=== PATIENT | male | born 1985 | race Caucasian/White ===

== ENCOUNTER 2016-07-27 05:41 | Day surgery (SDC) | payer MEDICAID ==
[~2016-07-27] VITALS: Ht 185.4 cm; Wt 107.5 kg
[2016-07-27] MEDS ORDERED: VYVANSE (06:12)
[2016-07-27] MEDS ORDERED: SERTRALINE (06:12)
[2016-07-27] MEDS ORDERED: KETOROLAC 30 MG/ML VIAL IVP STA (06:24)
[2016-07-27] MEDS ORDERED: NS IV 1000 ML 1,000 ML IV ONE (06:24)
[2016-07-27 06:32] LABS: BILIRUBIN,URINE NEGATIVE (NEGATIVE); KETONES,URINE NEGATIVE (NEGATIVE); LEUKOCYTE ESTERASE ,URINE NEGATIVE (NEGATIVE); NITRITE,URINE NEGATIVE (NEGATIVE); PH,URINE 7 (5-9); PROTEIN,URINE NEGATIVE (NEGATIVE); UROBILINOGEN,URINE NORMAL (NORMAL)
--- NOTE | 2016-07-27 06:34 | ED General ---
General Chief Complaint: General Problems/Pain Stated Complaint: FEVER 100.,ABD PAIN,BLOATED,POSS SORE THROAT,RT EA Nursing Triage Note: PT TO ED 5 W/ FRIEND FOR MULTIPLE COMPLAINTS. PT STATES HE HAS ABD PAIN FOR "AWHILE" OR 2-3 DAYS, FEVER, WEAKNESS, WATER IN HIS EARS, CONSTIPATION, BLOATING, EYES HURT, UV LIGHT SENSITIVE, COLOR SENSITIVE, FACE FEELS WEIRD BUT DENIES N/V. PT DOES REPORT HE DID HAVE BM X3 THIS AM. PT DID ROLL HIS EYES WHEN THIS RN ASKED HIM WHAT BROUGHT HIM TO THE ED. PT STATED "DIDN'T SHE TELL YOU?" REFERRING TO DATA ARCHITECT. Nursing Sepsis Screen: No Definite Risk Source of Information: Patient Exam Limitations: No Limitations History of Present Illness Time Seen by Provider: 06:15 Initial Comments Here with a variety of vague complaints that seems to center around abdominal discomfort today. States that this is been going on for a couple of days. Complaints of pain throughout the entire abdomen but states it started or centrally in the region of the umbilicus. Does admit to 3 bowel movements today. No blood in his stool or urine. States that it hurts to urinate but it does not burn. He states pain with urination is mostly in the abdomen. Denies nausea or vomiting. Does report fever today. Also complains of right ear pain that has been going on for a while which she then refers to a couple of weeks. States that the little better but still hurts. Also complains of facial tension. Timing/Duration: 2-3 Days, Changing Over Time, Getting Worse Severity: Moderate Associated Systoms: No Chest Pain, No Cough, Fever/Chills, No Nausea/Vomiting, No Rash, No Shortness of Air, No Weakness Allergies and Home Medications Allergies Coded Allergies: buspirone (Verified Allergy, Unknown, 07/27/16) efavirenz (Verified Allergy, Unknown, 07/27/16) paliperidone (Verified Allergy, Unknown, 07/27/16) Home Medications [Sertraline] , (Reported) [Vyvanse] , (Reported) Constitutional: see HPI, No chills, fever, No weakness EENTM: eye pain, No nose congestion, No throat pain Respiratory: No cough, No short of breath, No wheezing Cardiovascular: No chest pain, No edema Gastrointestinal: see HPI, abdominal pain (diffuse), No diarrhea, No hematemesis, No melena, No nausea, No vomiting Genitourinary: see HPI, No dysuria, No hematuria, pain Musculoskeletal: no symptoms reported Skin: no symptoms reported Psychiatric/Neurological: See HPI All Other Systems Reviewed Negative Unless Noted: Yes Past Dunzjlc-Jkwmvl-Pzmtqc Hx Patient Social History Alcohol Use: Denies Use Recreational Drug Use: No Smoking Status: Current Everyday Smoker Type Used: Cigarettes 2nd Hand Smoke Exposure: Yes Recent Foreign Travel: No Contact w/Someone Who Travel: No Recent Infectious Disease Expo: No Recent Hopitalizations: No Surgeries HX Surgeries: Yes Surgeries: Adenoidectomy, Tonsillectomy Respiratory Hx Respiratory Disorders: No Cardiovascular Hx Cardiac Disorders: No Neurological Hx Neurological Disorders: No Genitourinary Hx Genitourinary Disorders: No Gastrointestinal Hx Gastrointestinal Disorders: No Musculoskeletal Hx Musculoskeletal Disorders: No Endocrine Hx Endocrine Disorders: No HEENT HX ENT Disorders: No Cancer Hx Cancer: No Psychosocial Hx Psychiatric Problems: Yes Behavioral Health Disorders: ADD/ADHD, Anxiety, Personality Disorder, Depression Reviewed Nursing Assessment Reviewed/Agree w Nursing PMH: Yes Family Medical History Significant Family History: No Pertinent Family Hx Physical Exam Vital Signs Vital Sign - Last 12Hours 07/27/16 05:53 Temp 101.5 Pulse 106 Resp 20 B/P (MAP) 144/98 Pulse Ox 98 O2 Delivery Room Air Capillary Refill : Less Than 3 Seconds General Appearance: No Apparent Distress, WD/WN HEENT: PERRL/EOMI, TMs Normal, Pharynx Normal, Other (right auditory canal reddened consistent with mild otitis externa.) Neck: Full Range of Motion, Normal Inspection, Non Tender, Supple Respiratory: Chest Non Tender, Lungs Clear, Normal Breath Sounds Cardiovascular: Regular Rate, Rhythm, No Murmur Gastrointestinal: Normal Bowel Sounds, Soft, No Distended, No Guarding, No Mass , No Rebound, Tenderness (diffusely mild) Back: Normal Inspection, No CVA Tenderness, No Vertebral Tenderness Extremity: Non Tender, No Calf Tenderness Neurologic/Psychiatric: Alert, Oriented x3, No Motor/Sensory Deficits, Normal Mood/Affect Skin: Normal Color, Warm/Dry Focused Exam Lactic Acid Level Laboratory Tests Test 07/27/16 06:28 Lactic Acid Level 0.97 MMOL/L (0.50-2.00) Progress/Results/Core Measures Results/Orders Lab Results Laboratory Tests Test 07/27/16 06:26 07/27/16 06:28 Range/Units Urine Color YELLOW Urine Clarity CLEAR Urine pH 7 5-9 Urine Specific [place] 1.010 L 1.016-1.022 Urine Protein NEGATIVE NEGATIVE Urine Glucose (UA) NEGATIVE NEGATIVE Urine Ketones NEGATIVE NEGATIVE Urine Nitrite NEGATIVE NEGATIVE Urine Bilirubin NEGATIVE NEGATIVE Urine Urobilinogen NORMAL NORMAL MG/DL Urine Leukocyte Esterase NEGATIVE NEGATIVE Urine RBC (Auto) NEGATIVE NEGATIVE Urine RBC NONE /HPF Urine WBC NONE /HPF Urine Squamous Epithelial Cells RARE /HPF Urine Crystals NONE /LPF Urine Bacteria NEGATIVE /HPF Urine Casts NONE /LPF Urine Mucus NEGATIVE /LPF Urine Culture Indicated NO White Blood Count 18.2 H 4.3-11.0 10^3/uL Red Blood Count 5.36 4.35-5.85 10^6/uL Hemoglobin 14.8 13.3-17.7 G/DL Hematocrit 45 40-54 % Mean Corpuscular Volume 83 80-99 FL Mean Corpuscular Hemoglobin 28 25-34 PG Mean Corpuscular Hemoglobin Concent 33 32-36 G/DL Red Cell Distribution Width 12.0 10.0-14.5 % Platelet Count 176 130-400 10^3/uL Mean Platelet Volume 11.6 H 7.4-10.4 FL Neutrophils (%) (Auto) 76 H 42-75 % Lymphocytes (%) (Auto) 12 12-44 % Monocytes (%) (Auto) 12 0-12 % Eosinophils (%) (Auto) 1 0-10 % Basophils (%) (Auto) 0 0-10 % Neutrophils # (Auto) 13.8 H 1.8-7.8 X 10^3 Lymphocytes # (Auto) 2.1 1.0-4.0 X 10^3 Monocytes # (Auto) 2.1 H 0.0-1.0 X 10^3 Eosinophils # (Auto) 0.2 0.0-0.3 10^3/uL Basophils # (Auto) 0.0 0.0-0.1 10^3/uL Neutrophils % (Manual) 70 % Lymphocytes % (Manual) 19 % Monocytes % (Manual) 8 % Eosinophils % (Manual) 2 % Basophils % (Manual) 0 % Band Neutrophils 1 % Blood Morphology Comment NORMAL Sodium Level 140 135-145 MMOL/L Potassium Level 3.7 3.6-5.0 MMOL/L Chloride Level 101 98-107 MMOL/L Carbon Dioxide Level 28 21-32 MMOL/L Anion Gap 11 5-14 MMOL/L Blood Urea Nitrogen 7 7-18 MG/DL Creatinine 0.82 0.60-1.30 MG/DL Estimat Glomerular Filtration Rate > 60 BUN/Creatinine Ratio 9 Glucose Level 96 70-105 MG/DL Lactic Acid Level 0.97 0.50-2.00 MMOL/L Calcium Level 9.5 8.5-10.1 MG/DL Magnesium Level 2.1 1.8-2.4 MG/DL Total Bilirubin 0.8 0.1-1.0 MG/DL Aspartate Amino Transf (AST/SGOT) 25 5-34 U/L Alanine Aminotransferase (ALT/SGPT) 38 0-55 U/L Alkaline Phosphatase 77 40-136 U/L Total Protein 7.8 6.4-8.2 G/DL Albumin 4.3 3.2-4.5 G/DL Amylase Level 47 25-125 U/L Lipase 13 8-78 U/L My Orders Orders - TRISTAN SERNA MD Amylase (07/27/16 06:24) Cbc With Automated Diff (07/27/16 06:24) Comprehensive Metabolic Panel (07/27/16 06:24) Lipase (07/27/16 06:24) Magnesium (07/27/16 06:24) Ua Culture If Indicated (07/27/16 06:24) Saline Lock/Iv-Start (07/27/16 06:24) Ns Iv 1000 Ml (Sodium Chloride 0.9%) (07/27/16 06:24) Ketorolac Injection (Toradol Injection) (07/27/16 06:24) Manual Differential (07/27/16 06:28) Ct Abdomen/Pelvis W (07/27/16 06:47) Blood Culture (07/27/16 06:48) Lactic Acid Analyzer (07/27/16 06:48) Iohexol Injection (Omnipaque 350 Mg/Ml 1 (07/27/16 07:30) Ns (Ivpb) (Sodium Chloride 0.9% Ivpb Bag (07/27/16 07:30) Medications Given in ED Current Medications Medications Dose Ordered Sig/Kailey Route Start Time Stop Time Status Last Admin Dose Admin Iohexol 100 ml ONCE ONCE IV 07/27/16 07:30 07/27/16 07:31 DC 07/27/16 07:18 100 ML Sodium Chloride 100 ml ONCE ONCE IV 07/27/16 07:30 07/27/16 07:31 DC 07/27/16 07:19 80 ML Sodium Chloride 1,000 ml @ 0 mls/hr Q0M ONCE IV 07/27/16 06:24 07/27/16 06:27 DC 07/27/16 06:39 999 MLS/HR Vital Signs/I&O Vital Sign - Last 12Hours 07/27/16 05:53 Temp 101.5 Pulse 106 Resp 20 B/P (MAP) 144/98 Pulse Ox 98 O2 Delivery Room Air Blood Pressure Mean: 113 Progress Note : Progress Note Seen and evaluated. IV, labs and UA ordered. Normal saline 1 L bolus. Toradol 30 mg IV. Monitor patient. CT abdomen pelvis ordered due to elevated white count and abdominal complaints. This was positive for acute appendicitis. Dr. Mike called and he will see the patient in the ER. Patient to go to the OR today. Patient informed of findings and agrees with plan. Diagnostic Imaging Diagonstic Imaging: CT Plain Films/CT/US/NM/MRI: abdomen, pelvis Comments NAME: JESS VALVERDE [facility] REC#: [id number] PT STATUS: REG ER : 1985 PHYSICIAN: TRISTAN SERNA MD ADMIT DATE: 07/27/16/ER Signed Date of Exam: 07/27/16 CT ABDOMEN/PELVIS W PROCEDURE: CT abdomen and pelvis with contrast. TECHNIQUE: Multiple contiguous axial images were obtained through the abdomen and pelvis after administration of intravenous contrast. INDICATION: Abdominal pain 100 mL of Omnipaque 350 was administered intravenously. FINDINGS: The lung bases appear clear. The liver, the gallbladder, the pancreas, and adrenal glands appear unremarkable. The kidneys have symmetric enhancement and contrast excretion. There is no hydronephrosis. There is an enlarged caliber of the appendix with surrounding fatty stranding compatible with appendicitis. No evidence of perforation. Minimal amount of free fluid in the pelvis is seen. The abdominal aorta is normal in caliber. No periaortic significantly enlarged lymph nodes seen. A few diverticula in the sigmoid colon seen with no diverticulitis. The urinary bladder appears unremarkable. The osseous structures appear grossly unremarkable. IMPRESSION: Acute appendicitis with no evidence of perforation or abscess. The findings are discussed with Dr. Serna at time of dictation Dictated by: Dictated on workstation # [id number] Dict: 07/27/1628 Trans: 07/27/165 Interpreted by: GREGG DARLING MD Electronically signed by: GREGG DARLING MD 07/27/16 0755 Departure Communication Time/Spoke to Admitting Phy: 07:38 Impression Impression: Primary Impression: Appendicitis Qualified Codes: K35.2 - Acute appendicitis with generalized peritonitis Disposition: 01 HOME, SELF-CARE Condition: Stable Decision to Admit Reason: Admit from ER (General) Decision to Admit/Date: Jul 27, 2016 Time/Decision to Admit Time: 07:38 Departure-Patient Inst. Referrals: [facility][1] (PCP) Primary Care Physician JATIN MORRIS (Family) Primary Care Physician TRISTAN SERNA MD Jul 27, 2016 06:34
[2016-07-27 06:38] LABS: SQUAMOUS EPITHELIAL CELL,UR RARE /HPF
[2016-07-27 06:40] LABS: BASOPHILS % (AUTO) 0 % (0-10); EOSINOPHILS # (AUTO) 0.2 10^3/uL (0.0-0.3); EOSINOPHILS % (AUTO) 1 % (0-10); LYMPHOCYTES # (AUTO) 2.1 X 10^3 (1.0-4.0); LYMPHOCYTES % (AUTO) 12 % (12-44); MEAN CORPUSCULAR HEMOGLOBIN 28 PG (25-34); MEAN CORPUSCULAR HGB CONC 33 G/DL (32-36); MEAN CORPUSCULAR VOLUME 83 FL (80-99); MEAN PLATELET VOLUME 11.6 FL (7.4-10.4); MONOCYTES # (AUTO) 2.1 X 10^3 (0.0-1.0); MONOCYTES % (AUTO) 12 % (0-12); NEUTROPHILS # (AUTO) 13.8 X 10^3 (1.8-7.8); NEUTROPHILS % (AUTO) 76 % (42-75); PLATELET COUNT 176 10^3/uL (130-400); RED BLOOD COUNT 5.36 10^6/uL (4.35-5.85); WHITE BLOOD COUNT 18.2 10^3/uL (4.3-11.0)
[2016-07-27 07:04] LABS: ALANINE AMINOTRANSFERASE 38 U/L (0-55); ALBUMIN 4.3 G/DL (3.2-4.5); AMYLASE 47 U/L (25-125); ANION GAP 11 MMOL/L (5-14); ASPARTATE AMINO TRANSFERASE 25 U/L (5-34); BILIRUBIN,TOTAL 0.8 MG/DL (0.1-1.0); BLOOD UREA NITROGEN 7 MG/DL (7-18); BUN/CREATININE RATIO 9; CALCIUM 9.5 MG/DL (8.5-10.1); CARBON DIOXIDE 28 MMOL/L (21-32); CHLORIDE 101 MMOL/L (98-107); CREATININE SERUM 0.82 MG/DL (0.60-1.30); GFR ESTIMATED > 60; GLUCOSE 96 MG/DL (70-105); LIPASE 13 U/L (8-78); MAGNESIUM 2.1 MG/DL (1.8-2.4); POTASSIUM 3.7 MMOL/L (3.6-5.0); SODIUM 140 MMOL/L (135-145); TOTAL PROTEIN 7.8 G/DL (6.4-8.2)
[2016-07-27 07:14] LABS: BAND NEUTROPHILS 1 %; BASOPHILS % (MANUAL) 0 %; EOSINOPHILS % (MANUAL) 2 %; LYMPHOCYTES % (MANUAL) 19 %; NEUTROPHILS % (MANUAL) 70 %
[2016-07-27] MEDS ORDERED: NS 100 ML (IVPB) BAG IV ONE (07:30)
[2016-07-27] MEDS ORDERED: IOHEXOL 350 MG/ML 100 ML (OMNIPAQUE 350) VIAL IV ONE (07:30)
--- NOTE | 2016-07-27 07:53 | Diagnostic Imaging Report ---
PROCEDURE: CT abdomen and pelvis with contrast. TECHNIQUE: Multiple contiguous axial images were obtained through the abdomen and pelvis after administration of intravenous contrast. INDICATION: Abdominal pain 100 mL of Omnipaque 350 was administered intravenously. FINDINGS: The lung bases appear clear. The liver, the gallbladder, the pancreas, and adrenal glands appear unremarkable. The kidneys have symmetric enhancement and contrast excretion. There is no hydronephrosis. There is an enlarged caliber of the appendix with surrounding fatty stranding compatible with appendicitis. No evidence of perforation. Minimal amount of free fluid in the pelvis is seen. The abdominal aorta is normal in caliber. No periaortic significantly enlarged lymph nodes seen. A few diverticula in the sigmoid colon seen with no diverticulitis. The urinary bladder appears unremarkable. The osseous structures appear grossly unremarkable. IMPRESSION: Acute appendicitis with no evidence of perforation or abscess. The findings are discussed with Dr. Llanos at time of dictation Dictated by: Dictated on workstation # [id number]
[2016-07-27] MEDS ORDERED: LACTATED RINGERS 1,000 ML IV ONE ×3 (09:21→15:05)
[2016-07-27] MEDS: PIPERACILLIN SODIUM/TAZOBACTAM 4.5 GM in NS (IVPB) 100 ML IV ONE ×2 (09:23→14:23)
[2016-07-27] MEDS ORDERED: LACTATED RINGERS 1,000 ML IV PRN (09:57)
[2016-07-27] MEDS ORDERED: FAMOTIDINE 20MG/2ML IV (PEPCID) IV ONE (10:00)
[2016-07-27] MEDS ORDERED: MIDAZOLAM 2 MG/2 ML (VERSED) VIAL IV ONE (10:00)
--- NOTE | 2016-07-27 12:53 | History & Physical-Surgical ---
History of Present Illness History of Present Illness Reason for visit/HPI Pt is a 31 yo male who presents to ER with a variety of vague complaints that seems to center around abdominal discomfort today. States that this is been going on for 3 days; but worse yesterday and then really bad today. Rating pain now as at least 8 out of 10 on 1-10 scale. States it is a sharp stabbing pain; not really relieved by anything except now pain meds. Complaints of pain throughout the entire abdomen but states it started or centrally in the region of the umbilicus. Does admit to 3 bowel movements today. No blood in his stool or urine. States that it hurts to urinate but it does not burn. He states pain with urination is mostly in the abdomen. Denies vomiting but states he was getting nauseous this am. Does report fever today. Also complains of right ear pain that has been going on for a couple of weeks and thought abdominal pain was somehow due to that. States that the little better but still hurts. Also complains of facial tension. Timing/Duration: 2-3 Days, Changing Over Time, Getting Worse Severity: Severe Associated Systoms: No Chest Pain, No Cough, No Vomiting, No Rash, No Shortness of Air, No Weakness. Pt felt hot and chills, but didn't take temp. Date of Admission 07/27/16 Time Seen by Provider: 09:04 I consulted on this patient on 07/27/16 09:04 Attending Physician Bubba Mike DO [facility] Allergies and Home Medications Allergies Coded Allergies: buspirone (Verified Allergy, Unknown, 07/27/16) efavirenz (Verified Allergy, Unknown, 07/27/16) paliperidone (Verified Allergy, Unknown, 07/27/16) Home Medications [Sertraline] , (Reported) [Vyvanse] , (Reported) Past Cjeldrd-Qmftwh-Jhthdc Hx Patient Social History Alcohol Use: Denies Use Recreational Drug Use: No Smoking Status: Current Everyday Smoker Type Used: Cigarettes 2nd Hand Smoke Exposure: Yes Recent Foreign Travel: No Contact w/Someone Who Travel: No Recent Infectious Disease Expo: No Recent Hopitalizations: No Surgeries HX Surgeries: Yes Surgeries: Adenoidectomy, Tonsillectomy Respiratory Hx Respiratory Disorders: No Cardiovascular Hx Cardiac Disorders: No Neurological Hx Neurological Disorders: No Reproductive System Hx Reproductive Disorders: No Genitourinary Hx Genitourinary Disorders: No Gastrointestinal Hx Gastrointestinal Disorders: No Musculoskeletal Hx Musculoskeletal Disorders: No Endocrine Hx Endocrine Disorders: No HEENT HX ENT Disorders: No Cancer Hx Cancer: No Psychosocial Hx Psychiatric Problems: Yes Behavioral Health Disorders: ADD/ADHD, Anxiety, Personality Disorder, Depression Integumentary HX Skin/Integumentary Disorder: No Reviewed Nursing Assessment Reviewed/Agree w Nursing PMH: Yes Family Medical History Significant Family History: Diabetes (mother) Constitutional: chills, malaise EENTM: ear pain, hearing loss, No double vision, No mouth swelling, No throat swelling Respiratory: No cough, No dyspnea on exertion, No hemoptysis Cardiovascular: No chest pain, No palpitations Gastrointestinal: RLQ, nausea Genitourinary: No discharge, dysuria, No hematuria Musculoskeletal: muscle stiffness, muscle cramps Skin: No change in color, No change in hair/nails Psychiatric/Neurological: Anxiety, Depressed Other denies chronic illnesses, no abnormal bleeding, and no swollen lymph nodes Physical Exam Vital Signs Vital Sign - Last 12Hours 07/27/16 05:53 Temp 101.5 Pulse 106 Resp 20 B/P (MAP) 144/98 Pulse Ox 98 O2 Delivery Room Air Capillary Refill : Less Than 3 Seconds General Appearance: WD/WN, Anxious, Mild Distress Eyes: Bilateral Eye EOMI, Bilateral Eye PERRL HEENT: Pharynx Normal, No Pale Conjunctivae (L), No Pale Conjunctivae (R), No Scleral Icterus (L), No Scleral Icterus (R), Other (poor dentition) Neck: Full Range of Motion, Supple, No Thyromegaly Respiratory: Lungs Clear, Normal Breath Sounds, No Accessory Muscle Use, No Respiratory Distress Cardiovascular: Regular Rate, Rhythm, No Gallop, No Murmur Gastrointestinal: No Organomegaly, No Distended, Guarding (RLQ) Rectal: Deferred Back: No CVA Tenderness, No Vertebral Tenderness Extremity: Normal Capillary Refill, Normal Inspection, Normal Range of Motion, Non Tender, No Calf Tenderness Neurologic/Psychiatric: Alert, Oriented x3, No Motor/Sensory Deficits, Normal Mood/Affect, rotary shear operator II-XII Norm as Tested Skin: Normal Color, Warm/Dry Lymphatic: No Adenopathy (neck, axilla or groin) Data Review Labs Laboratory Tests 07/27/16 06:26: Urine Color YELLOW, Urine Clarity CLEAR, Urine pH 7, Urine Specific [place] 1.010L, Urine Protein NEGATIVE, Urine Glucose (UA) NEGATIVE, Urine Ketones NEGATIVE, Urine Nitrite NEGATIVE, Urine Bilirubin NEGATIVE, Urine Urobilinogen NORMAL, Urine Leukocyte Esterase NEGATIVE, Urine RBC (Auto) NEGATIVE, Urine RBC NONE, Urine WBC NONE, Urine Squamous Epithelial Cells RARE, Urine Crystals NONE , Urine Bacteria NEGATIVE, Urine Casts NONE, Urine Mucus NEGATIVE, Urine Culture Indicated NO 07/27/16 06:28: White Blood Count 18.2H, Red Blood Count 5.36, Hemoglobin 14.8, Hematocrit 45, Mean Corpuscular Volume 83, Mean Corpuscular Hemoglobin 28, Mean Corpuscular Hemoglobin Concent 33, Red Cell Distribution Width 12.0, Platelet Count 176, Mean Platelet Volume 11.6H, Neutrophils (%) (Auto) 76H, Lymphocytes (%) (Auto) 12, Monocytes (%) (Auto) 12, Eosinophils (%) (Auto) 1, Basophils (%) (Auto) 0, Neutrophils # (Auto) 13.8H, Lymphocytes # (Auto) 2.1, Monocytes # (Auto) 2.1H, Eosinophils # (Auto) 0.2, Basophils # (Auto) 0.0, Neutrophils % (Manual) 70, Lymphocytes % (Manual) 19, Monocytes % (Manual) 8, Eosinophils % (Manual) 2, Basophils % (Manual) 0, Band Neutrophils 1, Blood Morphology Comment NORMAL, Sodium Level 140, Potassium Level 3.7, Chloride Level 101, Carbon Dioxide Level 28, Anion Gap 11, Blood Urea Nitrogen 7, Creatinine 0.82, Estimat Glomerular Filtration Rate > 60, BUN/Creatinine Ratio 9, Glucose Level 96, Lactic Acid Level 0.97, Calcium Level 9.5, Magnesium Level 2.1, Total Bilirubin 0.8, Aspartate Amino Transf (AST/SGOT) 25, Alanine Aminotransferase (ALT/SGPT) 38, Alkaline Phosphatase 77, Total Protein 7.8, Albumin 4.3, Amylase Level 47, Lipase 13 Assessment/Plan Assessment/Plan Assessment/Plan Acute Appendicitis -RLQ pain, elevated WBC and CT read by radiologist as acute appendicitis IV fluid, IV ABX, pain control. To OR for Laparoscopic appendectomy, possible open. Risks and complications discussed with pt, including but not limited to pain, bleeding, infection scar, damage to bowel and need for further procedure. All questions answered to his satisfaction. Clinical Quality Measures DVT/VTE Risk/Contraindication: Risk Factor Score Per Nursin RFS Level Per Nursing on Admit: 1=Low/No VTE PPX BUBBA MIKE DO Jul 27, 2016 12:53
[2016-07-27] MEDS ORDERED: MIDAZOLAM 2 MG/2 ML (VERSED) VIAL ONE (13:41)
[2016-07-27] MEDS ORDERED: SEVOFLURANE (ULTANE) 15 ML INHAL SOLN ONE ×4 (13:41→15:05)
[2016-07-27] MEDS ORDERED: LIDOCAINE PF 2% 5 ML (XYLOCAINE) VIAL ONE (13:41)
[2016-07-27] MEDS ORDERED: ROCURONIUM 50 MG/5 ML (ZEMURON) VIAL IV ONE (13:41)
[2016-07-27] MEDS ORDERED: DEXAMETHASONE PF 10 MG/ML (DECADRON) VIAL ONE (13:41)
[2016-07-27] MEDS ORDERED: ONDANSETRON 4 MG/2 ML (SDV) Z0FRAN ONE (13:41)
[2016-07-27] MEDS ORDERED: proPOfol 200 MG/20 ML (DIPRIVAN) VIAL IV ONE ×2 (13:41→15:18)
[2016-07-27] MEDS ORDERED: fentaNYL INJECTION 100 MCG/2 ML AMP ONE (13:41)
[2016-07-27] MEDS ORDERED: LIDOCAINE/EPI 1%-1:200,000 (XYLOCAINE) 30 ML VIAL ONE (14:04)
[2016-07-27] MEDS ORDERED: GLYCOPYRROLATE 0.2 MG/ML (ROBINUL) 2 ML VIAL ONE ×2 (15:05→15:11)
[2016-07-27] MEDS ORDERED: NEOSTIGMINE (BLOXIVERZ ) 1 MG/1ML 10 ML VIAL ONE (15:05)
--- NOTE | 2016-07-27 15:22 | Progress Note-Post Operative ---
Post-Operative Progess Note Surgeon (s)/Risk Manager (s) Surgeon JASMINA JEAN DO Risk Manager: none Pre-Operative Diagnosis appendicitis Post-Operative Diagnosis Acute appendicitis Right indirect inguinal hernia Left direct inguinal hernia Procedure & Operative Findings Date of Procedure 07/27/16 Procedure Performed/Findings Lap appy Anesthesia Type GET Estimated Blood Loss Estimated blood loss (mL): less than 5ml Specimens/Packing Specimens Removed JASMINA Prakash DO Jul 27, 2016 15:22
[2016-07-27] MEDS ORDERED: HYDR-3820 PO (15:23)
--- NOTE | 2016-07-27 15:25 | Discharge Inst-Surgical ---
Discharge Inst-Surgical Depart Medication/Instructions New, Converted or Re-Newed RX: RX Given to Pt/Family Patient Instructions Follow up Appt: Make appointment for 1 week. [phone] Instructions: No lifting greater than 10 pounds. No strenuous activity. May shower in 24 hours, no tub bath or soaking. Use incentive spirometer at home as directed. No Smoking Skin/Wound Care: May remove bandaids in am 6/10, dermabond will fall off on its own. Symptoms to Report: Appetite Changes, Extremity Discoloration, Numbness/Tingling, Swelling Increased , Bleeding Excessive, Eyesight Changes, Pain Increased, Urine Color Change, Constipation(Persistent), Fever over 101 degree F, Pain/Pressure in chest, Urinating Difficulty, Cough Up/Vomit Blood, Heart Beat Irreg/Pounding, Pain/ Pressure in jaw, Vaginal Bleeding Increase, Cramps in feet or legs, Lightheadedness, Pain/Pressure in shoulder, Diarrhea(Persistent), Memory Changes Suddenly, Questions/Concerns, Weight gain consecutive days, Dizziness/ Fainting, Nausea/Vomiting, Shortness of Breath, Weight gain over 2 pounds If questions or concerns contact your physician Or seek help at emergency department. Activity Activity as Tolerated: Yes Driving Instructions: No Driving/Refer to Dr. Velasquez Discharge Diet: No Restrictions Diet After 24 Hours: Clear Liquid if Nauseous If Any Problems/Questions/Issu: Contact Your Physician, Go to Emergency Room Skin/Wound Care Infection Signs and Symptoms: Increased Redness, Foul Odor of Wound, Increased Drainage, Skin Itchy or Has a Rash, Increased Swelling, Temperature Above 101 F Stitches/Shilpa/Dermabond Dis: Dermabond Ice Pack: Ice On and Off Site JASMINA JEAN DO Jul 27, 2016 15:25
[2016-07-27] MEDS ORDERED: ONDANSETRON 4 MG/2 ML (SDV) Z0FRAN IVP PRN (15:30)
[2016-07-27] MEDS ORDERED: KETOROLAC 30 MG/ML VIAL IVP ONE (15:30)
[2016-07-27] MEDS ORDERED: HYDROmorphone (DILAUDID) 2 MG/ML VIAL IVP PRN (15:30)
[2016-07-27] MEDS ORDERED: morphine INJ 10 MG/ML 1ML (SYR OR VIAL) IVP PRN (15:30)
[2016-07-27 16:27] VITALS: BP 112/64
[2016-07-27 16:30] VITALS: BP 110/62
[2016-07-27 17:00] VITALS: BP 116/68
[2016-07-27 17:30] VITALS: BP 117/64
[2016-07-27 17:50] VITALS: BP 117/64
--- NOTE | 2016-07-27 23:29 | OPERATIVE REPORT ---
DATE OF SERVICE: 07/27/2016 PREOPERATIVE DIAGNOSIS: Acute appendicitis. POSTOPERATIVE DIAGNOSIS: Acute appendicitis. PROCEDURE: Laparoscopic appendectomy. SURGEON: Dr. Mike. ANALYSIS LEAD: None. ANESTHESIA: General endotracheal tube. SPECIMEN: Appendix. ESTIMATED BLOOD LOSS: Scant. FLUIDS: Per anesthesia. POST-OPERATIVE CONDITION: Stable. INDICATION FOR PROCEDURE: The patient is a 31-year-old male with right lower quadrant pain, classic story for appendicitis, elevated white count and a CAT scan read as appendicitis. FINDINGS: The patient had acute appendicitis. There was some fibrinous material and it was erythematous, but it had not burst open. PROCEDURE NOTE: After informed consent was obtained, the patient brought to the operating room and placed on the table in supine position. He was sterilely prepped and draped in the normal fashion. Local lidocaine used to infiltrate the skin above the umbilicus. Then made an incision with a #11 blade, carried down through the skin into the subcutaneous tissue, then debrided down the subcutaneous tissue with Bovie electrocautery down to the fascia. Fascia incised with Bovie electrocautery and then bluntly entered the abdomen and placed 0-Vicryl figure-of-8 suture and placed an 11-mm trocar port under direct visualization. Created a pneumoperitoneum and then placed 2 more ports in a normal fashion using local lidocaine, a 11-blade for stab incision and the VersaStep system, all done under direct visualization, one suprapubically and one in the left lower quadrant. The patient was placed in Trendelenburg and rotated left, able to visualize the cecum, follow it down to the appendix. The base of the appendix was not inflamed, but the tip had been encased with some omentum. There was some fibrinous material. It was erythematous and thickened. It was an acute appendicitis. Able to grasp the mesoappendix with a grasper and then come across the mesoappendix with LigaSure in a stepwise fashion, clamping, coagulating and transecting in this fashion coming all the way across until the appendix was just attached to the cecum and came across and transected the appendiceal artery in this way. Switched to a 5-mm camera and then brought an Endo MELVIN into the abdomen, place the Endo MELVIN across the base of the appendix, clamped and fired, thereby transecting it, placed a bag in the abdomen, placed the appendix in the bag and then removed this through the supraumbilical incision and placed the port back in the abdomen, copiously irrigated with normal saline and suctioned this out. Looked around; he had actually a right indirect inguinal hernia and looked like what would be a left direct inguinal hernia. We took pictures of this, did not move any of the . We did not see any other obvious pathology. At this point, placed the patient back supine position, removed all ports under direct visualization and allowed pneumoperitoneum to escape, as well as suctioned out, closing the supraumbilical incision, closed the fascia with 0-Vicryl suture previously placed and copiously irrigated incisions with normal saline, closing the 2 small 5-mm incisions with a single interrupted 4-0 undyed Monocryl subcuticular suture. Closed the supraumbilical incision with 3 interrupted 4-0 undyed Monocryl subcuticular sutures. The area was clean and dried. Dermabond placed and then Band-Aids. The patient was transferred to recovery room in stable condition. Sponge, instrument and needle counts correct at the end of the case. Job ID: [id number] DocumentID: [id number] Dictated Date: 07/27/2016 15:20:45 Nutrition Services Associate Date: 07/27/2016 23:29:05 Dictated By: JASMINA MIKE DO
== END 2016-07-27 17:50 | disposition home or self-care (01) ==
LOC: EDUNIT# 05:41 → ER 05:51 → SDC 09:17
PROVIDERS: ATTEND Surgery
DX: K35.80 Unspecified acute appendicitis (principal); F41.9 Anxiety disorder, unspecified; F32.9 Major depressive disorder, single episode, unspecified; F17.210 Nicotine dependence, cigarettes, uncomplicated; Z79.899 Other long term (current) drug therapy
CPT/HCPCS: 36415; 74177; 80053; 81000; 82150; 83605; 83690; 83735; 85007; 85027; 87040

== ENCOUNTER 2016-12-31 06:30 | Emergency (ER) | payer MEDICAID ==
[~2016-12-31] VITALS: Ht 185.4 cm; Wt 107.5 kg
[~2016-12-31 06:30] MED LIST: HYDR-3820 PO; SERTRALINE; VYVANSE
--- OUTSIDE RECORDS SUMMARY | 2016-12-31 06:36 | XMS REPORT ---
Author Author JATIN MORRIS [facility] Address [address] [place] [address] Care Team Providers Care Logistics Lead Name Role Phone JATIN MORRIS Unavailable PROBLEMS Type Condition ICD9-CM Code [id number] Code Onset Dates Condition Status SNOMED Code Problem Cannabis abuse F12.10 Active 20630641 Problem ADD (attention deficit disorder) F90.0 Active 765373485 Problem Mood disorder F39 Active 91928765 Problem Attention deficit hyperactivity disorder (ADHD), predominantly inattentive type F90.0 Active 59635859 Problem Anxiety disorder, unspecified F41.9 Active 181196341 Problem Depressive disorder, not elsewhere classified F32.9 Active 34796801 Problem Encounter for dental examination Z01.20 Active 115299334 Problem Attention deficit hyperactivity disorder (ADHD), combined type F90.2 Active 56323813 ALLERGIES Substance Reaction Event Type Date Status Invega Sustenna Unable to sleep Drug Allergy June, Active BusPIRone HCl seizure Drug Allergy June, Active SOCIAL HISTORY Never Assessed PLAN OF CARE Activity Details Follow Up 4 Weeks Reason:mood disorder VITAL SIGNS Height 73 in 2016-07-12 Weight 238 lbs 2016-07-12 Temperature 98.6 degrees Fahrenheit 2016-07-12 Heart Rate 88 bpm 2016-07-12 Respiratory Rate 18 2016-07-12 BMI 31.40 kg/m2 2016-07-12 Blood pressure systolic 126 mmHg 2016-07-12 Blood pressure diastolic 78 mmHg 2016-07-12 MEDICATIONS Medication Instructions Dosage Frequency Start Date End Date Duration Status Sertraline HCl 100 mg Orally Once a day 1 tablet 24h May, 30 day(s) Active Olanzapine 10 mg Orally at bedtime 1 tablet May, 30 day(s) Active Vyvanse 60 mg Orally Once a day 1 capsule in the morning 24h June, Active Sertraline HCl 50 mg Orally Once a day, in the afternoon 1 tablet June 30 day(s) Active RESULTS No Results PROCEDURES No Known procedures IMMUNIZATIONS No Known Immunizations MEDICAL (GENERAL) HISTORY Type Description Date Medical History schizophrenia Medical History attention deficit disorder Medical History red and green colorblind Medical History depression Medical History PTSD Surgical History tonsillectomy Surgical History ependix removed August 2016 Hospitalization History [facility] 05/17/2015-05/23/2015 [facility]2015 Hospitalization History [facility] for attepted suscide 04/2016
--- OUTSIDE RECORDS SUMMARY | 2016-12-31 06:36 | XMS REPORT ---
Author Author JATIN MORRIS [facility] Address [address] [place] [address] Care Team Providers Care Apprentice Carpenter Name Role Phone JATIN MORRIS Unavailable PROBLEMS Type Condition ICD9-CM Code [id number] Code Onset Dates Condition Status SNOMED Code Problem Cannabis abuse F12.10 Active 34569332 Problem ADD (attention deficit disorder) F90.0 Active 655313941 Problem Mood disorder F39 Active 59648295 Problem Attention deficit hyperactivity disorder (ADHD), predominantly inattentive type F90.0 Active 55230302 Problem Anxiety disorder, unspecified F41.9 Active 765225483 Problem Depressive disorder, not elsewhere classified F32.9 Active 54743960 Problem Encounter for dental examination Z01.20 Active 560309230 Problem Attention deficit hyperactivity disorder (ADHD), combined type F90.2 Active 83744832 ALLERGIES Substance Reaction Event Type Date Status Invega Sustenna Unable to sleep Drug Allergy Apr, Active BusPIRone HCl seizure Drug Allergy Apr, Active SOCIAL HISTORY Never Assessed PLAN OF CARE Activity Details Follow Up 4 Weeks Reason:adhd VITAL SIGNS Height 73 in 2016-05-04 Weight 213 lbs 2016-05-04 Temperature 98.2 degrees Fahrenheit 2016-05-04 Heart Rate 88 bpm 2016-05-04 Respiratory Rate 18 2016-05-04 BMI 28.10 kg/m2 2016-05-04 Blood pressure systolic 118 mmHg 2016-05-04 Blood pressure diastolic 76 mmHg 2016-05-04 MEDICATIONS Medication Instructions Dosage Frequency Start Date End Date Duration Status Adderall XR 30 MG Orally Once a day 2 capsules 24h Apr, Active Sertraline HCl 100 mg Orally Once a day 1.5 tablet 24h 30 days Active RESULTS Name Result Date Reference Range AMERITOX 2016-05-04 PROCEDURES Procedure Date Ordered Result Body Site No Charge May 04, 2016 IMMUNIZATIONS No Known Immunizations MEDICAL (GENERAL) HISTORY Type Description Date Medical History schizophrenia Medical History attention deficit disorder Medical History red and green colorblind Medical History depression Medical History PTSD Surgical History tonsillectomy Surgical History ependix removed August 2016 Hospitalization History [facility] 05/17/2015-05/23/2015 Hospitalization [facility]/2015 Hospitalization History [facility] for attepted suscide 04/2016
--- OUTSIDE RECORDS SUMMARY | 2016-12-31 06:36 | XMS REPORT ---
Author Author MIKE JACINDA Organization [facility] Address [address] [place] [address] Care Team Providers Care Patient Care Representative Name Role Phone JACINDA MCKEON Unavailable PROBLEMS Type Condition ICD9-CM Code [id number] Code Onset Dates Condition Status SNOMED Code Problem Cannabis abuse F12.10 Active 01023414 Problem ADD (attention deficit disorder) F90.0 Active 550463477 Problem Mood disorder F39 Active 89892748 Problem Attention deficit hyperactivity disorder (ADHD), predominantly inattentive type F90.0 Active 59830041 Problem Anxiety disorder, unspecified F41.9 Active 841325173 Problem Depressive disorder, not elsewhere classified F32.9 Active 81094966 Problem Encounter for dental examination Z01.20 Active 603393612 Problem Attention deficit hyperactivity disorder (ADHD), combined type F90.2 Active 78201301 ALLERGIES Substance Reaction Event Type Date Status Invega Sustenna Unable to sleep Drug Allergy Apr, Active BusPIRone HCl seizure Drug Allergy Apr, Active SOCIAL HISTORY Never Assessed PLAN OF CARE Activity Details Follow Up 2 Weeks Reason: VITAL SIGNS Height 73 in 2016-04-18 Weight 201 lbs 2016-04-18 Temperature 98.0 degrees Fahrenheit 2016-04-18 Heart Rate 70 bpm 2016-04-18 Respiratory Rate 16 2016-04-18 BMI 26.52 kg/m2 2016-04-18 Blood pressure systolic 112 mmHg 2016-04-18 Blood pressure diastolic 70 mmHg 2016-04-18 MEDICATIONS Medication Instructions Dosage Frequency Start Date End Date Duration Status Ibuprofen 600 MG Orally Three times a day 1 tablet 8h Apr,Apr 10 days Active Sertraline HCl 100 mg Orally Once a day 1.5 tablet 24h 30 days Active Adderall 30 MG Orally twice a day 1 tablet 12h 30 Feb, 2016 28 days Active RESULTS Name Result Date Reference Range Xray : Hand, Right 3 views (IN HOUSE) 2016-04-18 PROCEDURES Procedure Date Ordered Result Body Site X-RAY EXAM OF HAND April 18, 2016 IMMUNIZATIONS No Known Immunizations MEDICAL (GENERAL) HISTORY Type Description Date Medical History schizophrenia Medical History attention deficit disorder Medical History red and green colorblind Medical History depression Medical History PTSD Surgical History tonsillectomy Surgical History ependix removed August 2016 Hospitalization History [facility] 05/17/2015-05/23/2015 [facility]ization [facility]2015 Hospitalization History [facility] for attepted sus[facility]ide 04/2016
--- OUTSIDE RECORDS SUMMARY | 2016-12-31 06:38 | XMS REPORT ---
Author Author JATIN MORRIS [facility] Address [address] [place] [address] Care Team Providers Care Aircraft Engine Installer Name Role Phone JATIN MORRIS Unavailable PROBLEMS Type Condition ICD9-CM Code [id number] Code Onset Dates Condition Status SNOMED Code Problem Cannabis abuse F12.10 Active 56560089 Problem ADD (attention deficit disorder) F90.0 Active 445232324 Problem Mood disorder F39 Active 68630348 Problem Attention deficit hyperactivity disorder (ADHD), predominantly inattentive type F90.0 Active 75687457 Problem Anxiety disorder, unspecified F41.9 Active 427453121 Problem Depressive disorder, not elsewhere classified F32.9 Active 59821882 Problem Encounter for dental examination Z01.20 Active 376993388 Problem Attention deficit hyperactivity disorder (ADHD), combined type F90.2 Active 16999492 ALLERGIES No Information SOCIAL HISTORY Never Assessed PLAN OF CARE VITAL SIGNS MEDICATIONS Unknown Medications RESULTS No Results PROCEDURES No Known procedures IMMUNIZATIONS No Known Immunizations MEDICAL (GENERAL) HISTORY Type Description Date Medical History schizophrenia Medical History attention deficit disorder Medical History red and green colorblind Medical History depression Medical History PTSD Surgical History tonsillectomy Surgical History ependix removed August 2016 Hospitalization History [facility] 05/17/2015-05/23/2015 Hospitalization History [facility] 08/2015 Hospitalization History [facility] for attepted suscide 04/2016
--- OUTSIDE RECORDS SUMMARY | 2016-12-31 06:40 | XMS REPORT ---
Author Author JATIN MORRIS [facility] Address [address] [place] [address] Care Team Providers Care Pricing Manager Name Role Phone ARTUROJATIN Unavailable PROBLEMS Type Condition ICD9-CM Code SVP87-OC Code Onset Dates Condition Status SNOMED Code Problem Cannabis abuse F12.10 Active 85121670 Problem ADD (attention deficit disorder) F90.0 Active 481048949 Problem Mood disorder F39 Active 17314787 Problem Attention deficit hyperactivity disorder (ADHD), predominantly inattentive type F90.0 Active 75449586 Problem Depressive disorder, not elsewhere classified F32.9 Active 92887393 Problem Anxiety disorder, unspecified F41.9 Active 286271883 Problem Encounter for dental examination Z01.20 Active 771885206 Problem Attention deficit hyperactivity disorder (ADHD), combined type F90.2 Active 86917857 ALLERGIES Unknown Allergies SOCIAL HISTORY No smoking Hx information available PLAN OF CARE VITAL SIGNS MEDICATIONS Medication Instructions Dosage Frequency Start Date End Date Duration Status Fluvoxamine Maleate 25 MG Orally Once a day 1 tablet at bedtime 24h 15 Oct Active Adderall 20 MG Orally twice a day 1 tablet 12h Jan, 28 days Active RESULTS No Results PROCEDURES No Known procedures IMMUNIZATIONS No Known Immunizations
--- OUTSIDE RECORDS SUMMARY | 2016-12-31 06:42 | XMS REPORT ---
Author Author JATIN MORRIS [facility] Address [address] [place] [address] Care Team Providers Care Cross Country Coach Name Role Phone JATIN MORRIS Unavailable PROBLEMS Type Condition ICD9-CM Code [id number]-OY Code Onset Dates Condition Status SNOMED Code Problem Cannabis abuse F12.10 Active 70356474 Problem ADD (attention deficit disorder) F90.0 Active 042741156 Problem Mood disorder F39 Active 39298654 Problem Attention deficit hyperactivity disorder (ADHD), predominantly inattentive type F90.0 Active 88833685 Problem Anxiety disorder, unspecified F41.9 Active 269870020 Problem Depressive disorder, not elsewhere classified F32.9 Active 36964014 Problem Encounter for dental examination Z01.20 Active 136934886 Problem Attention deficit hyperactivity disorder (ADHD), combined type F90.2 Active 92889318 ALLERGIES Substance Reaction Event Type Date Status Invega Sustenna Unable to sleep Drug Allergy Feb, Active BusPIRone HCl seizure Drug Allergy Feb, Active SOCIAL HISTORY No smoking Hx information available PLAN OF CARE VITAL SIGNS Height 73 in 2016-03-19 Weight 209.1 lbs 2016-03-19 Temperature 98.2 degrees Fahrenheit 2016-03-19 Heart Rate 82 bpm 2016-03-19 Respiratory Rate 20 2016-03-19 BMI 27.58 kg/m2 2016-03-19 Blood pressure systolic 118 mmHg 2016-03-19 Blood pressure diastolic 76 mmHg 2016-03-19 MEDICATIONS Medication Instructions Dosage Frequency Start Date End Date Duration Status Sertraline HCl 100 mg Orally Once a day 1.5 tablet 24h 30 days Active Adderall 30 MG Orally twice a day 1 tablet 12h 30 Feb, 2016 28 days Active RESULTS No Results PROCEDURES Procedure Date Ordered Related Diagnosis Body Site Office Visit, Est Pt., Level 3 Mar 19, 2016 IMMUNIZATIONS No Known Immunizations
--- OUTSIDE RECORDS SUMMARY | 2016-12-31 06:42 | XMS REPORT | Continuity of Care Document ---
Author Author [facility] Address Unknown Phone Unavailable Allergies Medications Problems Date Dx Coded Attending Type Code Diagnosis Diagnosed By 01/25/2012 295.90 UNSPECIFIED TYPE SCHIZOPHRENIA UNSPECIFIED STATE 01/25/2012 311 DEPRESSIVE DISORDER NOS 01/25/2012 JULIANE GRIFFIN DO 295.90 UNSPECIFIED TYPE SCHIZOPHRENIA UNSPECIFIED STATE 01/25/2012 JULIANE GRIFFIN DO 311 DEPRESSIVE DISORDER NOS 01/25/2012 TANK HANLEY APRN 295.90 UNSPECIFIED TYPE SCHIZOPHRENIA UNSPECIFIED STATE 01/25/2012 TANK HANLEY APRN 311 DEPRESSIVE DISORDER NOS 08/18/2013 JULIANE GRIFFIN DO 919.4 INSECT BITE NONVENOMOUS OF OTHER MULTIPLE AND UNSPECIFIED SITES WITHOUT INFECTION 08/18/2013 TANK HANLEY APRN 919.4 INSECT BITE NONVENOMOUS OF OTHER MULTIPLE AND UNSPECIFIED SITES WITHOUT INFECTION 11/24/2013 TANK HANLEY APRN 302.72 ERECTILE DISORDER Procedures Results Encounters ACCT No. Visit Date/Time Discharge Status Pt. Type Provider Facility Loc./Unit Complaint [id number] 11/24/2013 11:28:00 11/24/2013 23: 59:59 CLS Outpatient TANK HANLEY APRN [id number] 08/18/2013 10:16:00 08/18/2013 23: 59:59 CLS Outpatient JULIANE GRIFFIN DO [id number] 01/25/2012 16:13:00 01/25/2012 23: 59:59 CLS Outpatient
--- OUTSIDE RECORDS SUMMARY | 2016-12-31 06:42 | XMS REPORT ---
Author Author JATIN MORRIS Organization [facility] Address [address] [place] [address] Care Team Providers Care Warp Preparer Name Role Phone JATIN MORRIS Unavailable PROBLEMS Type Condition ICD9-CM Code WTV13-MR Code Onset Dates Condition Status SNOMED Code Problem Cannabis abuse F12.10 Active 88638005 Problem ADD (attention deficit disorder) F90.0 Active 693158890 Problem Mood disorder F39 Active 65848895 Problem Attention deficit hyperactivity disorder (ADHD), predominantly inattentive type F90.0 Active 93230463 Problem Depressive disorder, not elsewhere classified F32.9 Active 15516426 Problem Anxiety disorder, unspecified F41.9 Active 665421007 Problem Encounter for dental examination Z01.20 Active 692526761 Problem Attention deficit hyperactivity disorder (ADHD), combined type F90.2 Active 35987275 ALLERGIES Substance Reaction Event Type Date Status Invega Sustenna Unable to sleep Drug Allergy Jan, Active BusPIRone HCl seizure Drug Allergy Jan, Active SOCIAL HISTORY No smoking Hx information available PLAN OF CARE Activity Details Follow Up 4 Weeks Reason:ocd VITAL SIGNS Height 73 in 2016-02-16 Weight 206.4 lbs 2016-02-16 Temperature 97.7 degrees Fahrenheit 2016-02-16 Heart Rate 80 bpm 2016-02-16 Respiratory Rate 20 2016-02-16 BMI 27.23 kg/m2 2016-02-16 Blood pressure systolic 126 mmHg 2016-02-16 Blood pressure diastolic 82 mmHg 2016-02-16 MEDICATIONS Medication Instructions Dosage Frequency Start Date End Date Duration Status Sertraline HCl 100 MG Orally Once a day 1.5 tablet 24h 30 days Active Adderall 20 MG Orally twice a day 1 tablet 12h Jan, 28 days Active Fluvoxamine Maleate 25 MG Orally Twice a day 1/2 tablet 12h 15 Oct, 2015 Active RESULTS No Results PROCEDURES Procedure Date Ordered Related Diagnosis Body Site Office Visit, Est Pt., Level 3 Feb 16, 2016 IMMUNIZATIONS No Known Immunizations
--- OUTSIDE RECORDS SUMMARY | 2016-12-31 06:42 | XMS REPORT ---
Author Author PATRICIA BALDOMERO [facility] Address [address] [place] [address] Care Team Providers Care Scientific Specialist Name Role Phone BALDOMERO GOMEZ Unavailable PROBLEMS Type Condition ICD9-CM Code SIM35-CP Code Onset Dates Condition Status SNOMED Code Problem Cannabis abuse F12.10 Active 41398513 Problem ADD (attention deficit disorder) F90.0 Active 947711126 Problem Mood disorder F39 Active 80305074 Problem Attention deficit hyperactivity disorder (ADHD), predominantly inattentive type F90.0 Active 03020857 Problem Depressive disorder, not elsewhere classified F32.9 Active 59245226 Problem Anxiety disorder, unspecified F41.9 Active 119674988 Problem Encounter for dental examination Z01.20 Active 576118431 Problem Attention deficit hyperactivity disorder (ADHD), combined type F90.2 Active 56702843 ALLERGIES Substance Reaction Event Type Date Status Invega Sustenna Unable to sleep Drug Allergy Jan, Active BusPIRone HCl seizure Drug Allergy Jan, Active SOCIAL HISTORY No smoking Hx information available PLAN OF CARE Activity Details Follow Up First Available Reason:SRP VITAL SIGNS Heart Rate 85 bpm 2016-02-01 Blood pressure systolic 130 mmHg 2016-02-01 Blood pressure diastolic 83 mmHg 2016-02-01 MEDICATIONS Medication Instructions Dosage Frequency Start Date End Date Duration Status Fluvoxamine Maleate 25 MG Orally Once a day 1 tablet at bedtime 24h 15 Oct Active Sertraline HCl 100 MG Orally Once a day 1.5 tablet 24h 30 days Active Adderall 20 MG Orally twice a day 1 tablet 12h June, 28 days Active RESULTS No Results PROCEDURES Procedure Date Ordered Related Diagnosis Body Site Periodontal scaling and root Feb 01, 2016 Periodontal scaling and root Feb 01, 2016 COMP ORAL EVALUATION - NEW/EST PT Feb 01, 2016 INTRAORL-PERIAPICAL 1 FILM [id number] Feb 01, 2016 BITEWINGS - FOUR FILMS Feb 01, 2016 INTRAORL-PERIAPICAL EA ADD FILM Feb 01, 2016 PANORAMIC FILM SEE ALSO CODE [id number] Feb 01, 2016 INTRAORL-PERIAPICAL EA ADD FILM Feb 01, 2016 INTRAORL-PERIAPICAL EA ADD FILM Feb 01, 2016 INTRAORL-PERIAPICAL EA ADD FILM Feb 01, 2016 INTRAORL-PERIAPICAL EA ADD FILM Feb 01, 2016 IMMUNIZATIONS No Known Immunizations
--- OUTSIDE RECORDS SUMMARY | 2016-12-31 06:42 | XMS REPORT ---
Author Author JATIN MORRIS [facility] Address [address] [place] [address] Care Team Providers Care Signals Collector/Analyst Name Role Phone JATIN MORRIS Unavailable PROBLEMS Type Condition ICD9-CM Code GHJ06-RB Code Onset Dates Condition Status SNOMED Code Problem Cannabis abuse F12.10 Active 36125365 Problem ADD (attention deficit disorder) F90.0 Active 733864888 Problem Mood disorder F39 Active 41940343 Problem Attention deficit hyperactivity disorder (ADHD), predominantly inattentive type F90.0 Active 86123142 Problem Anxiety disorder, unspecified F41.9 Active 535558455 Problem Depressive disorder, not elsewhere classified F32.9 Active 61236893 Problem Encounter for dental examination Z01.20 Active 613727459 Problem Attention deficit hyperactivity disorder (ADHD), combined type F90.2 Active 93588898 ALLERGIES No Information SOCIAL HISTORY Never Assessed [...] [facility] 05/17/2015-05/23/2015 Hospitalization History [facility] 08/2015 Hospitalization History [facility] for attepted suscide 04/2016
--- OUTSIDE RECORDS SUMMARY | 2016-12-31 06:42 | XMS REPORT ---
Author Author JATIN MORRIS [facility] Address [address] [place] [address] Care Team Providers Care Inbound Customer Service Representative Name Role Phone JATIN MORRIS Unavailable PROBLEMS Type Condition ICD9-CM Code [id number] Code Onset Dates Condition Status SNOMED Code Problem Cannabis abuse F12.10 Active 27319752 Problem ADD (attention deficit disorder) F90.0 Active 159060338 Problem Mood disorder F39 Active 90237517 Problem Attention deficit hyperactivity disorder (ADHD), predominantly inattentive type F90.0 Active 97119110 Problem Anxiety disorder, unspecified F41.9 Active 697950065 Problem Depressive disorder, not elsewhere classified F32.9 Active 32959448 Problem Encounter for dental examination Z01.20 Active 945100753 Problem Attention deficit hyperactivity disorder (ADHD), combined type F90.2 Active 07855709 ALLERGIES Unknown Allergies SOCIAL HISTORY No smoking Hx information available PLAN OF CARE VITAL SIGNS MEDICATIONS Medication Instructions Dosage Frequency Start Date End Date Duration Status Adderall 20 MG Orally twice a day 1 tablet 12h Jan, 28 days Active RESULTS No Results PROCEDURES No Known procedures IMMUNIZATIONS No Known Immunizations
--- OUTSIDE RECORDS SUMMARY | 2016-12-31 06:42 | XMS REPORT ---
Author Author JATIN MORRIS [facility] Address [address] [place] [address] Care Team Providers Care Glass Technician/Installer Name Role Phone JATIN MORRIS Unavailable PROBLEMS Type Condition ICD9-CM Code HAC27-RS Code Onset Dates Condition Status SNOMED Code Problem Cannabis abuse F12.10 Active 47959177 Problem ADD (attention deficit disorder) F90.0 Active 085216014 Problem Mood disorder F39 Active 05253534 Problem Attention deficit hyperactivity disorder (ADHD), predominantly inattentive type F90.0 Active 10514983 Problem Anxiety disorder, unspecified F41.9 Active 951890637 Problem Depressive disorder, not elsewhere classified F32.9 Active 37267409 Problem Encounter for dental examination Z01.20 Active 557546494 Problem Attention deficit hyperactivity disorder (ADHD), combined type F90.2 Active 88745503 ALLERGIES No Information SOCIAL HISTORY Never Assessed PLAN OF CARE VITAL SIGNS MEDICATIONS Medication Instructions Dosage Frequency Start Date End Date Duration Status Vyvanse 60 mg Orally Once a day 1 capsule in the morning 24h June, Active RESULTS No Results PROCEDURES No Known procedures IMMUNIZATIONS No Known Immunizations MEDICAL (GENERAL) HISTORY Type Description Date Medical History schizophrenia Medical History attention deficit disorder Medical History red and green colorblind Medical History depression Medical History PTSD Surgical History tonsillectomy Surgical History ependix removed August 2016 Hospitalization History [facility] 05/17/2015-05/23/2015 Hospitalization History [facility] 08/2015 Hospitalization History [facility] attepted sus[facility]ide 04/2016
[2016-12-31 06:49] VITALS: BP 138/114
[2016-12-31] MEDS ORDERED: LISD70CA3 (06:49)
[2016-12-31] MEDS ORDERED: OLAN10TA19 (06:49)
[2016-12-31] MEDS ORDERED: SERT100T8 (06:49)
[2016-12-31] MEDS ORDERED: AMOX500C2 PO (06:53)
--- NOTE | 2016-12-31 06:54 | ED EENT ---
History of Present Illness General Chief Complaint: Dental Problems/Pain Stated Complaint: TOOTH PAIN DUE TO INJ Source: patient Exam Limitations: no limitations History of Present Illness Time seen by provider: 06:46 Initial Comments Patient has ER with a chief complaint of left upper incisor and I tooth pain secondary to cavities and dental decay that has progressively gotten worse the last week. He has been using aspirin modest success for pain relief. He is also been using Orajel. He has not scheduled appointment with a dentist yet. He has no purulence, drainage, fevers, chills, nausea, vomiting. Allergies and Home Medications Allergies Coded Allergies: buspirone (Verified Allergy, Unknown, 07/27/16) efavirenz (Verified Allergy, Unknown, 07/27/16) paliperidone (Verified Allergy, Unknown, 07/27/16) Home Medications Lisdexamfetamine Dimesylate 70 Mg Capsule, (Reported) Olanzapine 10 Mg Tablet, (Reported) Sertraline HCl 100 Mg Tablet, (Reported) Review of Systems Constitutional: No chills, No fever Eyes: Denies Blindness, Denies Drainage Ears: Denies Dizziness, Denies Pain Nose: denies congestion, denies epistaxis Mouth: denies clots, denies loose teeth, pain, denies swelling Throat: denies pain, denies swelling Respiratory: No cough, No short of breath Past Lenuxgq-Xdnkdm-Kcbzro Hx Patient Social History Type Used: Cigarettes 2nd Hand Smoke Exposure: Yes Recent Foreign Travel: No Contact w/Someone Who Travel: No Recent Hopitalizations: No Surgeries History of Surgeries: Yes Surgeries: Adenoidectomy, Tonsillectomy Respiratory History of Respiratory Disorde: No Cardiovascular History of Cardiac Disorders: No Neurological History of Neurological Disord: No Reproductive System Hx Reproductive Disorders: No Genitourinary History of Genitourinary Disor: No Gastrointestinal History of Gastrointestinal Di: No Musculoskeletal History of Musculoskeletal Dis: No Endocrine History of Endocrine Disorders: No HEENT History of HEENT Disorders: No Cancer History of Cancer: No Psychosocial History of Psychiatric Problem: Yes Behavioral Health Disorders: ADD/ADHD, Anxiety, Personality Disorder, Depression Integumentary History of Skin or Integumenta: No Family Medical History Significant Family History: Diabetes Physical Exam General Appearance: WD/WN, mild distress Eyes: bilateral eye normal inspection, bilateral eye PERRL, bilateral eye EOMI Ears: bilateral ear auricle normal, bilateral ear canal normal, bilateral ear TM normal Nose: normal inspection, No active bleeding Mouth/Throat: other (dental caries without abscess, fluctuance, or discharge.) Neck: non-tender, normal inspection Departure Impression Impression: Primary Impression: Dental caries Disposition: 01 HOME, SELF-CARE Condition: Stable Departure-Patient Inst. Decision time for Depature: 06:52 Referrals: [facility] (PCP/Family) Primary Care Physician Patient Instructions: Dental Pain (DC) Add. Discharge Instructions: Make follow-up appointment with the dentist. Naprosyn 2 capsules twice a day and Tylenol 1000 mg every 8 hours as needed for pain. Warm compress over the face will also be helpful. All discharge instructions reviewed with patient and/or family. Voiced understanding. Scripts Amoxicillin (Amoxicillin) 500 Mg Capsule 500 MG PO TID, #21 CAP 0 Refills Prov: FABIOLA GARCIA 12/31/16 Copy Copies To 1: JULIANE GRIFFIN DO FABIOLA GARCIA Dec 31, 2016 06:54
[2016-12-31] MEDS ORDERED: LIDOCAINE 2% VISCOUS 15 ML UDC PO ONE (07:00)
== END 2016-12-31 07:00 | disposition home or self-care (01) ==
LOC: EDUNIT# 06:30 → ER 06:33
DX: K02.9 Dental caries, unspecified (principal); F90.9 Attention-deficit hyperactivity disorder, unspecified type; F41.9 Anxiety disorder, unspecified; F32.9 Major depressive disorder, single episode, unspecified; Z90.89 Acquired absence of other organs
CPT/HCPCS: 99282

== ENCOUNTER 2017-03-08 07:22 | Emergency (ER) | payer MEDICAID ==
[~2017-03-08] VITALS: Ht 185.4 cm; Wt 122.5 kg
[~2017-03-08 07:22] MED LIST changes: +AMOX500C2 PO; +LISD70CA3; +OLAN10TA19; +SERT100T8
--- OUTSIDE RECORDS SUMMARY | 2017-03-08 07:27 | XMS REPORT ---
Author Author JATIN MORRIS [facility] Address [address] [place] [address] Care Team Providers Care Playground Worker Name Role Phone JATIN MORRIS Unavailable PROBLEMS Type Condition ICD9-CM Code [id number] Code Onset Dates Condition Status SNOMED Code Problem Cannabis abuse F12.10 Active 33446533 Problem ADD (attention deficit disorder) F90.0 Active 762088101 Problem Mood disorder F39 Active 85147297 Problem Attention deficit hyperactivity disorder (ADHD), predominantly inattentive type F90.0 Active 41331624 Problem Anxiety disorder, unspecified F41.9 Active 880374881 Problem Depressive disorder, not elsewhere classified F32.9 Active 42727548 Problem Encounter for dental examination Z01.20 Active 109251462 Problem Attention deficit hyperactivity disorder (ADHD), combined type F90.2 Active 98509146 ALLERGIES No Information SOCIAL HISTORY Never Assessed [...] [facility]2015-05/23/2015 Hospitalization History [facility] 08/2015 Hospitalization History [facility] for attepted [facility]ide 04/2016
--- OUTSIDE RECORDS SUMMARY | 2017-03-08 07:27 | XMS REPORT | Continuity of Care Document ---
Author Author [facility] Address Unknown Phone Unavailable Allergies There is no data. Medications There is no data. Problems Date Dx Coded Attending Type Code [...] TANK HANLEY APRN 302.72 ERECTILE DISORDER Procedures There is no data. Results There is no data. Encounters ACCT No. Visit Date/Time Discharge Status Pt. Type Provider Facility Loc./Unit Complaint [id number] 11/24/2013 11:28:00 11/24/2013 23:59:59 CLS Outpatient TANK HANLEY APRN [id number] 08/18/2013 10:16:00 08/18/2013 23:59:59 CLS Outpatient JULIANE GRIFFIN DO [id number] 01/25/2012 16:13:00 01/25/2012 23:59:59 CLS Outpatient
--- OUTSIDE RECORDS SUMMARY | 2017-03-08 07:27 | XMS REPORT ---
Author Author JATIN MORRIS Organization [facility] Address [address] [place] [address] Care Team Providers Care Line Locator Name Role Phone JATIN MORRIS Unavailable PROBLEMS Type Condition ICD9-CM Code FEE25-XB Code Onset Dates Condition Status SNOMED Code Problem Cannabis abuse F12.10 Active 78463838 Problem ADD (attention deficit disorder) F90.0 Active 569371700 Problem Mood disorder F39 Active 32881572 Problem Attention deficit hyperactivity disorder (ADHD), predominantly inattentive type F90.0 Active 18428339 Problem Anxiety disorder, unspecified F41.9 Active 307456409 Problem Depressive disorder, not elsewhere classified F32.9 Active 98592293 Problem Encounter for dental examination Z01.20 Active 646876101 Problem Attention deficit hyperactivity disorder (ADHD), combined type F90.2 Active 23209801 ALLERGIES No Information SOCIAL HISTORY Never Assessed PLAN OF CARE VITAL SIGNS MEDICATIONS Medication Instructions Dosage Frequency Start Date End Date Duration Status Sertraline HCl 100 MG Orally Once a day 1 tablet 24h May, 30 day(s) Active RESULTS No Results PROCEDURES No Known procedures IMMUNIZATIONS No Known Immunizations MEDICAL (GENERAL) HISTORY Type Description Date Medical History schizophrenia Medical History attention deficit disorder Medical History red and green colorblind Medical History depression Medical History PTSD Surgical History tonsillectomy Surgical History ependix removed August 2016 Hospitalization History [facility] 05/17/2015-05/23/2015 Hospitalization History [facility] 08/2015 Hospitalization History [facility] atte[facility]ed [facility] 04/2016
[2017-03-08 07:44] LABS: BILIRUBIN,URINE NEGATIVE (NEGATIVE); CLARITY,URINE CLEAR; COLOR,URINE YELLOW; GLUCOSE, URINE (UA) NEGATIVE (NEGATIVE); KETONES,URINE NEGATIVE (NEGATIVE); LEUKOCYTE ESTERASE ,URINE NEGATIVE (NEGATIVE); NITRITE,URINE NEGATIVE (NEGATIVE); PH,URINE 6 (5-9); PROTEIN,URINE NEGATIVE (NEGATIVE); UROBILINOGEN,URINE NORMAL (NORMAL)
[2017-03-08] MEDS ORDERED: IBUPROFEN 600 MG (MOTRIN) TAB PO ONE (07:45)
[2017-03-08] MEDS ORDERED: NS IV 1000 ML 1,000 ML IV SCH (07:45)
[2017-03-08 07:55] LABS: BACTERIA,URINE NEGATIVE /HPF
[2017-03-08 07:56] LABS: BASOPHILS % (AUTO) 0 % (0-10); EOSINOPHILS # (AUTO) 0.2 10^3/uL (0.0-0.3); EOSINOPHILS % (AUTO) 2 % (0-10); HEMATOCRIT 43 % (40-54); HEMOGLOBIN 14.5 G/DL (13.3-17.7); LYMPHOCYTES % (AUTO) 10 % (12-44); MEAN CORPUSCULAR HEMOGLOBIN 28 PG (25-34); MEAN CORPUSCULAR HGB CONC 34 G/DL (32-36); MEAN CORPUSCULAR VOLUME 82 FL (80-99); MONOCYTES # (AUTO) 1.3 X 10^3 (0.0-1.0); MONOCYTES % (AUTO) 12 % (0-12); NEUTROPHILS % (AUTO) 76 % (42-75); PLATELET COUNT 155 10^3/uL (130-400); RED BLOOD COUNT 5.26 10^6/uL (4.35-5.85); WHITE BLOOD COUNT 10.6 10^3/uL (4.3-11.0)
[2017-03-08 08:15] LABS: ALANINE AMINOTRANSFERASE 207 U/L (0-55); ALBUMIN 4.1 GM/DL (3.2-4.5); ALKALINE PHOSPHATASE 100 U/L (40-136); BILIRUBIN,TOTAL 0.6 MG/DL (0.1-1.0); BUN/CREATININE RATIO 16; CALCIUM 9.4 MG/DL (8.5-10.1); CARBON DIOXIDE 25 MMOL/L (21-32); CHLORIDE 102 MMOL/L (98-107); CREATININE SERUM 0.86 MG/DL (0.60-1.30); GFR ESTIMATED > 60; GLUCOSE 102 MG/DL (70-105); SODIUM 139 MMOL/L (135-145); TOTAL PROTEIN 7.6 GM/DL (6.4-8.2)
--- NOTE | 2017-03-08 09:11 | ED Cough/URI ---
General Chief Complaint: Fever-Adult/Adol Stated Complaint: FEVER/N/V/D Nursing Triage Note: ARRIVED VIA AMB TO ROOM 05. COMPLAINTS OF FEVER X5 DAYS ALONG WITH SOME DIARRHEA. Source: patient Exam Limitations: no limitations History of Present Illness Date Seen by Provider: Mar 08, 2017 Time Seen by Provider: 09:06 Initial Comments Wake up the patient is a 32-year-old white male. He really relates that he has had fever cough and malaise for about 5 days now. He coughs violently at times. There is postnasal drip. He vomited once after an extended coughing spell. His stools have been somewhat loose and his tummy grumbly. He has taken antipyretics only at odd intervals. His temperature is 102 at presentation today. Timing/Duration: week Severity/Quality: moderate, severe, productive cough Prior Episodes/Possible Cause: no prior episodes Allergies and Home Medications Allergies Coded Allergies: buspirone (Verified Allergy, Unknown, 07/27/16) efavirenz (Verified Allergy, Unknown, 07/27/16) paliperidone (Verified Allergy, Unknown, 07/27/16) Home Medications No Active Prescriptions or Reported Meds Constitutional: see HPI EENTM: nose congestion Respiratory: cough, dyspnea on exertion Cardiovascular: no symptoms reported Gastrointestinal: no symptoms reported Genitourinary: no symptoms reported Musculoskeletal: no symptoms reported Skin: no symptoms reported Psychiatric/Neurological: No Symptoms Reported Hematologic/Lymphatic: No Symptoms Reported Immunological/Allergic: no symptoms reported Past Azfprow-Smaycs-Pdmruu Hx Patient Social History Alcohol Use: Denies Use Recreational Drug Use: Yes Drug of Choice: POT Smoking Status: Current Everyday Smoker Type Used: Cigarettes 2nd Hand Smoke Exposure: Yes Recent Foreign Travel: No Contact w/Someone Who Travel: No Recent Infectious Disease Expo: No Recent Hopitalizations: No Immunizations Up To Date Tetanus Booster (TDap): Unknown Seasonal Allergies Seasonal Allergies: Yes Surgeries History of Surgeries: Yes Surgeries: Adenoidectomy, Appendectomy, Tonsillectomy Respiratory History of Respiratory Disorde: No Cardiovascular History of Cardiac Disorders: No Neurological History of Neurological Disord: No Reproductive System Hx Reproductive Disorders: No Genitourinary History of Genitourinary Disor: No Gastrointestinal History of Gastrointestinal Di: No Musculoskeletal History of Musculoskeletal Dis: No Endocrine History of Endocrine Disorders: No HEENT History of HEENT Disorders: No Cancer History of Cancer: No Psychosocial History of Psychiatric Problem: Yes Behavioral Health Disorders: ADD/ADHD, Anxiety, Personality Disorder, Depression Integumentary History of Skin or Integumenta: No Blood Transfusions History of Blood Disorders: No Family Medical History Significant Family History: Diabetes Physical Exam Vital Signs Vital Sign - Last 12Hours 03/08/17 07:25 Temp 102.9 Pulse 123 Resp 18 B/P (MAP) 144/107 (119) Pulse Ox 95 Capillary Refill : Less Than 3 Seconds General Appearance: mild distress Eyes: Bilateral Eye Normal Inspection HEENT: normal ENT inspection Neck: full range of motion Respiratory: chest non-tender, lungs clear, normal breath sounds, no respiratory distress, no accessory muscle use, respiratory distress Cardiovascular: normal peripheral pulses, regular rate, rhythm, no edema, no gallop, no JVD, no murmur Gastrointestinal: normal bowel sounds, non tender, soft, no organomegaly, no pulsatile mass Extremities: normal range of motion, non-tender, normal inspection, no pedal edema, no calf tenderness, normal capillary refill, pelvis stable Neurologic/Psychiatric: liquor tester II-XII nml as tested, no motor/sensory deficits, alert, normal mood/affect, oriented x 3 Skin: normal color, warm/dry, cyanosis, cool, diaphoresis, damp Lymphatic: no adenopathy Progress/Results/Core Measures Suspected Sepsis Recent Fever Within 48 Hours: Yes Infection Criteria Present: Suspected New Infection New/Unexplained Altered Menta: No Sepsis Screen: Possible Sepsis Risk Sepsis Diagnosis: SIRS Temperature:101.3 Pulse: 123 Respiratory Rate: 18 Laboratory Tests 03/08/17 07:49: White Blood Count 10.6 Blood Pressure 144 /107 Mean: 119 Laboratory Tests 03/08/17 07:49: Creatinine 0.86, Platelet Count 155, Total Bilirubin 0.6 Results/Orders Lab Results Laboratory Tests Test 03/08/17 07:35 03/08/17 07:49 Range/Units Urine Color YELLOW Urine Clarity CLEAR Urine pH 6 5-9 Urine Specific [place] 1.010 L 1.016-1.022 Urine Protein NEGATIVE NEGATIVE Urine Glucose (UA) NEGATIVE NEGATIVE Urine Ketones NEGATIVE NEGATIVE Urine Nitrite NEGATIVE NEGATIVE Urine Bilirubin NEGATIVE NEGATIVE Urine Urobilinogen NORMAL NORMAL MG/DL Urine Leukocyte Esterase NEGATIVE NEGATIVE Urine RBC (Auto) NEGATIVE NEGATIVE Urine RBC NONE /HPF Urine WBC NONE /HPF Urine Squamous Epithelial Cells NONE /HPF Urine Crystals NONE /LPF Urine Bacteria NEGATIVE /HPF Urine Casts NONE /LPF Urine Mucus NEGATIVE /LPF Urine Culture Indicated NO White Blood Count 10.6 4.3-11.0 10^3/uL Red Blood Count 5.26 4.35-5.85 10^6/uL Hemoglobin 14.5 13.3-17.7 G/DL Hematocrit 43 40-54 % Mean Corpuscular Volume 82 80-99 FL Mean Corpuscular Hemoglobin 28 25-34 PG Mean Corpuscular Hemoglobin Concent 34 32-36 G/DL Red Cell Distribution Width 13.0 10.0-14.5 % Platelet Count 155 130-400 10^3/uL Mean Platelet Volume 13.0 H 7.4-10.4 FL Neutrophils (%) (Auto) 76 H 42-75 % Lymphocytes (%) (Auto) 10 L 12-44 % Monocytes (%) (Auto) 12 0-12 % Eosinophils (%) (Auto) 2 0-10 % Basophils (%) (Auto) 0 0-10 % Neutrophils # (Auto) 8.0 H 1.8-7.8 X 10^3 Lymphocytes # (Auto) 1.0 1.0-4.0 X 10^3 Monocytes # (Auto) 1.3 H 0.0-1.0 X 10^3 Eosinophils # (Auto) 0.2 0.0-0.3 10^3/uL Basophils # (Auto) 0.0 0.0-0.1 10^3/uL Sodium Level 139 135-145 MMOL/L Potassium Level 4.0 3.6-5.0 MMOL/L Chloride Level 102 98-107 MMOL/L Carbon Dioxide Level 25 21-32 MMOL/L Anion Gap 12 5-14 MMOL/L Blood Urea Nitrogen 14 7-18 MG/DL Creatinine 0.86 0.60-1.30 MG/DL Estimat Glomerular Filtration Rate > 60 BUN/Creatinine Ratio 16 Glucose Level 102 70-105 MG/DL Calcium Level 9.4 8.5-10.1 MG/DL Total Bilirubin 0.6 0.1-1.0 MG/DL Aspartate Amino Transf (AST/SGOT) 135 H 5-34 U/L Alanine Aminotransferase (ALT/SGPT) 207 H 0-55 U/L Alkaline Phosphatase 100 40-136 U/L Total Protein 7.6 6.4-8.2 GM/DL Albumin 4.1 3.2-4.5 GM/DL My Orders Orders - CHEMA ALLEN MD Cbc With Automated Diff (03/08/17 07:28) Comprehensive Metabolic Panel (03/08/17 07:28) Ua Culture If Indicated (03/08/17 07:28) Ibuprofen Tablet (Motrin Tablet) (03/08/17 07:45) Ns Iv 1000 Ml (Sodium Chloride 0.9%) (03/08/17 07:45) Medications Given in ED Current Medications Medications Dose Ordered Sig/Kailey Route Start Time Stop Time Status Last Admin Dose Admin Ibuprofen 600 mg ONCE ONCE PO 03/08/17 07:45 03/08/17 07:46 DC 03/08/17 07:53 600 MG Vital Signs/I&O Vital Sign - Last 12Hours 03/08/17 03/08/17 07:25 08:52 Temp 102.9 101.3 Pulse 123 Resp 18 B/P (MAP) 144/107 (119) Pulse Ox 95 Capillary Refill : Less Than 3 Seconds Blood Pressure Mean: 119 Departure Impression Impression: Primary Impression: flulike symptoms Disposition: 01 HOME, SELF-CARE Condition: Stable/Unchanged Departure-Patient Inst. Decision time for Depature: 09:16 Referrals: [facility] (PCP/Family) Primary Care Physician Patient Instructions: Flu, Adult (DC) Add. Discharge Instructions: All discharge instructions reviewed with patient and/or family. Voiced understanding. Rest. Lots of liquids. Tylenol 650 every 4 hours for temperature greater than 101. If temperature greater than 102 ibuprofen 600 mg 4 times a day is more useful. It has been taking up to 2 weeks to recover from this. Scripts No Active Prescriptions or Reported Meds CHEMA ALLEN MD Mar 08, 2017 09:11
[2017-03-08 09:26] VITALS: BP 129/85
== END 2017-03-08 09:26 | disposition home or self-care (01) ==
LOC: EDUNIT# 07:22 → ER 07:24
DX: J11.1 Influenza due to unidentified influenza virus with other respiratory manifestations (principal); F41.9 Anxiety disorder, unspecified; F32.9 Major depressive disorder, single episode, unspecified; F60.9 Personality disorder, unspecified; F90.9 Attention-deficit hyperactivity disorder, unspecified type; F17.210 Nicotine dependence, cigarettes, uncomplicated; Z90.89 Acquired absence of other organs; Z90.49 Acquired absence of other specified parts of digestive tract
CPT/HCPCS: 36415; 80053; 81000; 85025; 96360

== ENCOUNTER 2017-08-20 21:50 | Emergency (ER) | payer MEDICAID ==
[~2017-08-20] VITALS: Ht 185.4 cm; Wt 122.5 kg
--- NOTE | 2017-08-20 21:57 | ED Upper Extremity ---
General Chief Complaint: Laceration Source: patient Exam Limitations: no limitations History of Present Illness Date Seen by Provider: Aug 20, 2017 Time Seen by Provider: 21:54 Initial Comments To ER per EMS from home with reports of a cut to the radial side of the second MCP joint left hand while he was using a knife to cut open a zip tie just prior to arrival. Tetanus is not up-to-date within the past 5 years. Onset: just prior to arrival Severity: mild Pain/Injury Location: left 2nd finger Modifying Factors: Worse With Movement Allergies and Home Medications Allergies Coded Allergies: buspirone (Verified Allergy, Unknown, 07/27/16) efavirenz (Verified Allergy, Unknown, 07/27/16) paliperidone (Verified Allergy, Unknown, 07/27/16) Home Medications No Active Prescriptions or Reported Meds Patient Home Medication List Home Medication List Reviewed: Yes Constitutional: see HPI EENTM: see HPI Respiratory: no symptoms reported Cardiovascular: no symptoms reported Genitourinary: no symptoms reported Musculoskeletal: no symptoms reported Skin: see HPI Psychiatric/Neurological: No Symptoms Reported Past Fushqtg-Cfokek-Zocola Hx Patient Social History Drug of Choice: POT Type Used: Cigarettes 2nd Hand Smoke Exposure: Yes Recent Hopitalizations: No Immunizations Up To Date Tetanus Booster (TDap): Unknown Seasonal Allergies Seasonal Allergies: Yes Past Medical History Surgeries: Yes Adenoidectomy, Appendectomy, Tonsillectomy Respiratory: No Cardiac: No Neurological: No Reproductive Disorders: No Genitourinary: No Gastrointestinal: No Musculoskeletal: No Endocrine: No HEENT: No Cancer: No Psychosocial: Yes ADD/ADHD, Anxiety, Personality Disorder, Depression Integumentary: No Blood Disorders: No Family Medical History Diabetes Physical Exam Vital Signs Vital Signs - First Documented 08/20/17 21:53 Temp 98.2 Pulse 110 Resp 18 B/P (MAP) 135/100 (112) Pulse Ox 95 Capillary Refill : General Appearance: WD/WN, no apparent distress HEENT: PERRL/EOMI, normal ENT inspection Neck: non-tender, full range of motion Respiratory: no respiratory distress, no accessory muscle use Gastrointestinal: normal bowel sounds, non tender Shoulder: normal inspection, non-tender Elbow/Forearm: normal inspection, non-tender Hand: Left, laceration (1.5 cm laceration to the radial side of the second MCP joint left hand with depth to the subcutaneous tenderness tissue. There is no apparent tendon involvement.) Neurologic/Psychiatric: alert, normal mood/affect, oriented x 3 Skin: normal color, warm/dry Procedures/Interventions Wound Location: Upper Extremities Wound Length (cm): 1.5 Wound's Depth, Shape: sub Q Irrigated w/ Saline (ccs): 50 Anesthesia: 1% Lidocaine Volume Anesthetic (ccs): 2 Suture: Prolene Suture Size: 4-0 Number of Sutures: 4 Layer Closure?: 1 Number Deep Layer Sutures: 0 Progress Area anesthetized with 2 mL of 2% lidocaine without epinephrine. Wound then scrubbed with chlorhexidine/saline solution. Wounds and closed with 4 simple interrupted sutures size 4-0 Prolene. Covered with gauze Progress/Results/Core Measures Results/Orders My Orders Orders - MAINE SAGE APRN Dipht,Pertuss(Acell),Tet Adult (Boostrix (08/20/17 22:00) Lidocaine 2% Injection 20 Ml (Xylocaine (08/20/17 22:00) Medications Given in ED Current Medications Medications Dose Ordered Sig/Kailey Route Start Time Stop Time Status Last Admin Dose Admin Diphtheria/ Tetanus/Acell Pertussis 0.5 ml ONCE ONCE IM 08/20/17 22:00 08/20/17 22:01 DC 08/20/17 22:03 0.5 ML Lidocaine HCl 20 ml ONCE ONCE INJ 08/20/17 22:00 08/20/17 22:01 DC 08/20/17 22:04 5 ML Vital Signs/I&O 08/20/17 21:53 Temp 98.2 Pulse 110 Resp 18 B/P (MAP) 135/100 (112) Pulse Ox 95 Departure Impression Primary Impression: LACERATION WITHOUT FOREIGN BODY OF LEFT HAND, INIT ENCNTR Disposition: HOME, SELF-CARE Condition: Stable Departure-Patient Inst. Decision time for Depature: 21:56 Referrals: [facility] (PCP/Family) Primary Care Physician Patient Instructions: Laceration Repair With Stitches (DC) Add. Discharge Instructions: 1. Return to ER in 10 days to have the stitches removed. You may shower starting tonight letting the water run over this but do not soak it in water such as swimming pool, hot tub, bath tub until the stitches are removed. Return to ER before the ten-day marked for any sign of infection such as redness or puslike drainage. All discharge instructions reviewed with patient and/or family. Voiced understanding. Scripts No Active Prescriptions or Reported Meds MAINE SAGE APRN Aug 20, 2017 21:57
[2017-08-20] MEDS ORDERED: TETANUS,DIPTH,PERTUSS P/F (BOOSTRIX) 0.5 ML VIAL IM ONE (22:00)
[2017-08-20] MEDS ORDERED: LIDOCAINE 2% 20 ML (XYLOCAINE) VIAL INJ ONE (22:00)
[2017-08-20 22:22] VITALS: BP 135/100
== END 2017-08-20 22:22 | disposition home or self-care (01) ==
LOC: EDUNIT# 21:50 → ER 21:51
DX: S61.211A Laceration without foreign body of left index finger without damage to nail, initial encounter (principal); F90.9 Attention-deficit hyperactivity disorder, unspecified type; F41.9 Anxiety disorder, unspecified; F32.9 Major depressive disorder, single episode, unspecified; Z23 Encounter for immunization; Z90.89 Acquired absence of other organs; Z77.22 Contact with and (suspected) exposure to environmental tobacco smoke (acute) (chronic); Z88.8 Allergy status to other drugs, medicaments and biological substances; W26.0XXA Contact with knife, initial encounter
CPT/HCPCS: 12001; 90471; 90715